=== PATIENT | male | born 1980 | race African-American/Black ===

== ENCOUNTER 2019-07-24 11:21 | Inpatient (IN) | payer OTHER ==
[2019-07-24 12:36] VITALS: BMI 20.3
--- NOTE | 2019-07-24 13:12 | HP ---
CIWA Score Nausea/Vomitin Muscle Tremors: None Anxiety: 2 Agitation: 2 Paroxysmal Sweats: 2 Orientation: 0-Oriented Tacttile Disturbances: 0-None Auditory Disturbances: 0-None Visual Disturbances: 2-Mild Sensitivity Headache: 2-Mild CIWA-Ar Total Score: 12 - Admission Criteria OASAS Guidelines: Admission for Medically Managed Detox: Requires at least one of the followin. CIWA greater than 12 2. Seizures within the past 24 hours 3. Delirium tremens within the past 24 hours 4. Hallucinations within the past 24 hours 5. Acute intervention needed for co occurring medical disorder 6. Acute intervention needed for co occurring psychiatric disorder 7. Severe withdrawal that cannot be handled at a lower level of care (continued vomiting, continued diarrhea, abnormal vital signs) requiring intravenous medication and/or fluids 8. Admission ROS [facility] Allergies/Adverse Reactions: Allergies Allergy/AdvReac Type Severity Reaction Status Date / Time tomato Allergy Intermediate Swelling Verified 07/24/19 12:26 No Known Drug Allergies Allergy Verified 07/24/19 13:46 History of Present Illness: This report was requested by: Sandy Campo | Reference #: [id number] Others' Prescriptions Patient Name: Alexander Sauceda Date: 1980 Address: [address] [place] [address] Sex: Male Rx Written Rx Dispensed Drug Quantity Days Supply Prescriber Name 01/08/2019 01/08/2019 tramadol hcl 50 mg tablet 42 7 Rea Morris ([employer]) 39 y.o. male requesting detox from etoh use cocaine : 1 oz/day via inhalation since age 17 , latest use 3 days ago cannabis : "same as cocaine" tobacco : 1 ppd etoh : 3 pints vodka /day x 5 years , latest use yesterday and this morning , denies seizures or blackouts, denies tremors . PMHX : HIV on HAART latest taken Saturday , left shoulder and right knee chronic pain ( basketball injury ) pshx : skin disorder in childhood , jaw frx 2014 psych : depression , bipolar d/o not on meds . Exam Limitations: No Limitations - Review of Systems Constitutional: No Symptoms Reported EENT: reports: No Symptoms Reported Respiratory: reports: No Symptoms reported Cardiac: reports: No Symptoms Reported GI: reports: Nausea : reports: No Symptoms Reported Musculoskeletal: reports: Joint Pain (chronic right knee , left shoulder states had MRI @ [facility] Apr 2019 , did not go back for results. States he was jumping and landed on his right knee.) Integumentary: reports: No Symptoms Reported Neuro: reports: Headache Endocrine: reports: No Symptoms Reported Psychiatric: reports: Orientated x3, Agitated, Anxious Patient History - Smoking Cessation Smoking history: Current every day smoker Have you smoked in the past 12 months: Yes Hx Chewing Tobacco Use: No Initiated information on smoking cessation: Yes 'Breaking Loose' booklet given: 07/24/19 - Substances abused Alcohol Substance route: Oral Frequency: Daily Amount used: vodka- 3pts Age of first use: 17 Date of last use: 07/24/19 Benzodiazepine (Klonopin) Substance route: Oral Frequency: Daily Amount used: 3mg Age of first use: 22 Date of last use: 07/24/19 Crack Substance route: Smoking Frequency: Daily Amount used: $20 Age of first use: 17 Date of last use: 07/21/19 K2/Spice Substance route: Smoking Frequency: Daily Amount used: 15 blunts Age of first use: 37 Date of last use: 07/24/19 Admission Physical Exam S - Vital Signs Vital Signs: Vital Signs - 24 hr 07/24/19 12:28 Temperature 98.6 F Pulse Rate 93 H Respiratory 19 Rate Blood Pressure 151/103 H - Physical General Appearance: Yes: Mild Distress, Anxious HEENTM: Yes: EOMI, Normocephalic, Normal Voice, Muffled/Hoarse Voice Respiratory: Yes: Chest Non-Tender, Lungs Clear, Normal Breath Sounds, No Respiratory Distress, No Accessory Muscle Use Neck: Yes: No masses,lesions,Nodules, Trachea in good position Cardiology: Yes: Regular Rhythm, Regular Rate, S1, S2, Tachycardia Abdominal: Yes: Normal Bowel Sounds, Non Tender, Soft Musculoskeletal: Yes: full range of Motion, Gait Steady Extremities: Yes: Non-Tender Neurological: Yes: Fully Oriented, Alert, Motor Strength 5/5, Normal Mood/Affect Integumentary: Yes: Warm - Diagnostic (1) Alcohol use disorder Current Visit: Yes Status: Chronic (2) Cocaine use Current Visit: Yes Status: Chronic (3) Cannabis use disorder, mild, abuse Current Visit: Yes Status: Chronic (4) Inhalant abuse Current Visit: Yes Status: Chronic (5) Nicotine dependence Current Visit: Yes Status: Chronic Qualifiers: Nicotine product type: cigarettes Breathalyzer - Breathalyzer Breathalyzer: 0 Urine Drug Screen - Test Device Lot number: [id number] Expiration date: 05/18/21 - Control Is test valid?: Yes - Results Drug screen NEGATIVE: No Urine drug screen results: THC-Marijuana, ADRI-Cocaine Inpatient Rehab Admission - Rehab Decision to Admit Inpatient rehab admission?: No
[2019-07-24] MEDS ORDERED: IBUPROFEN 400 MG TABLET (FP) PO PRN (13:25)
[2019-07-24] MEDS ORDERED: ACETAMINOPHEN 325 MG TABLET (FP) PO PRN ×2 (13:25)
[2019-07-24] MEDS ORDERED: hydrOXYzine PAMOATE 25 MG CAPSULE (FP) PO PRN (13:25)
[2019-07-24] MEDS ORDERED: MAG HYDROX/AL HYDROX/SIMETH 30 ML UNIT-DOSE CUP PO PRN (13:25)
[2019-07-24] MEDS ORDERED: MELATONIN 5 MG TABLETS PO PRN (13:25)
[2019-07-24] MEDS ORDERED: MAGNESIUM HYDROX 2400MG/30ML ORAL SUSPENSION 30 ML CUP PO PRN (13:25)
[2019-07-24] MEDS ORDERED: MAGNESIUM CITRATE 300 ML BOTTLE PO PRN (13:25)
[2019-07-24] MEDS ORDERED: MENTHOL/PHENOL 1 EACH UD MM PRN (13:25)
[2019-07-24] MEDS ORDERED: BISMUTH SUBSALICYLATE 524 MG/30 ML UD PO PRN (13:25)
[2019-07-24] MEDS ORDERED: diazePAM 5 MG TABLET PO PRN (13:28)
[2019-07-24] MEDS: diazePAM 5 MG TABLET PO SCH ×2 (14:25→22:22)
[2019-07-24] MEDS: ABACAVIR/DOLUTEGRAVIR/LAMIVUDI (TRIUMEQ) TABLET -NF PO SCH (16:03)
[2019-07-24] MEDS: THIAMINE HCL 100 MG TABLET (FP) PO SCH (22:22)
[2019-07-25] MEDS: diazePAM 5 MG TABLET PO SCH ×3 (06:10→21:42)
[2019-07-25] MEDS ORDERED: PRENATAL VITAMINS W/ FOLIC ACID TABLET (FP) PO SCH (10:00)
[2019-07-25] MEDS: ABACAVIR/DOLUTEGRAVIR/LAMIVUDI (TRIUMEQ) TABLET -NF PO SCH (10:14)
[2019-07-25 10:41] LABS: HEMATOCRIT 46.4 % (35.4-49); HEMOGLOBIN 15.5 GM/dL (11.7-16.9); MCH 32.3 pg (25.7-33.7); MCHC 33.4 g/dl (32.0-35.9); MEAN CELL VOLUME 96.8 fl (80-96); MEAN PLT VOLUME 9.9 fl (7.5-11.1); PLATELET COUNT 172 K/MM3 (134-434); RDW 13.6 % (11.9-15.9); WHITE BLOOD COUNT 4.7 K/mm3 (4.0-10.0)
[2019-07-25 10:43] LABS: ALBUMIN 4.2 g/dl (3.4-5.0); BILIRUBIN,TOTAL 0.8 mg/dL (0.2-1); BLOOD UREA NITROGEN 22.4 mg/dL (7-18); CALCIUM 9.2 mg/dL (8.5-10.1); CREATININE 1.3 mg/dL (0.55-1.3); POTASSIUM 3.9 mmol/L (3.5-5.1); TOT PROT 7.8 g/dl (6.4-8.2)
--- NOTE | 2019-07-25 12:13 | CONSULT ---
[facility] Psychiatric Consult - Data Date of interview: 07/25/19 Admission source: [facility] Identifying data: First visit at [facility] and admission to [address] [place] [address] for this 39 y/o AA male self-referred for detoxification treatment. EMMA issues : cocaine, alcohol, cannabis/K2, nicotine, benzodiazepine (xanax). Patient is single, no dependents, domiciled ([place] setting), unemployed and supported on [employer] funds. Substance Abuse History: Discussed with patient in this session. Details in current [facility] report as follows : Smoking history: Current every day smoker. Have you smoked in the past 12 months: Yes. Hx Chewing Tobacco Use: No. Initiated information on smoking cessation: Yes. 'Breaking Loose' booklet given : 07/24/19. - Substances abused. Alcohol. Substance route: Oral. Frequency: Daily. Amount used: vodka- 3pts. Age of first use: 17. Date of last use: 07/24/19. Benzodiazepine (Klonopin). Substance route: Oral. Frequency: Daily. Amount used: 3mg. Age of first use: 22. Date of last use: 07/24/19. Crack. Substance route: Smoking. Frequency: Daily. Amount used : $20. Age of first use: 17. Date of last use: 07/21/19. K2/Spice. Substance route: Smoking. Frequency: Daily. Amount used: 15 blunts. Age of first use: 37. Date of last use: 07/24/19 Medical History: Medical profile is remarkable for HIV infection since 2012 (on HAART medications), chronic pain syndrome (left shoulder + right knee) and antecedent of fracture of mandible (2014). Psychiatric History: Patient denies history of psychiatric hospitalizations. He states, however, that he sees a psychiatrist (Dr Kevin Miller) on a monthly basis, at the [facility] in [facility], for medication management ( prescribed seroquel 200 mg/hs). Diagnosed with schizoaffective disorder (as per self-report). Mr Sauceda denies history of suicide attempts. Physical/Sexual Abuse/Trauma History: Patient denies history of abuse. Additional Comment: Urine drug screen results: THC-Marijuana, ADRI-Cocaine. Noted. Mental Status Exam - Mental Status Exam Alert and Oriented to: Time, Place, Person Cognitive Function: Good Patient Appearance: Well Groomed Mood: Hopeful, Euthymic Affect: Appropriate, Normal Range Patient Behavior: Appropriate, Cooperative Speech Pattern: Clear, Appropriate Voice Loudness: Normal Thought Process: Intact, Goal Oriented Thought Disorder: Not Present Hallucinations: Denies Suicidal Ideation: Denies Insight/Judgement: Poor Sleep: Poorly, Difficulty falling asleep Appetite: Good Gait/Station: Normal Psychiatric Findings - Problem List ([place] 1, 2,3) (1) Alcohol use disorder Current Visit: Yes Status: Chronic (2) Cannabis use disorder, mild, abuse Current Visit: Yes Status: Chronic (3) Cocaine use Current Visit: Yes Status: Chronic (4) Nicotine dependence Current Visit: Yes Status: Chronic Qualifiers: Nicotine product type: cigarettes (5) History of schizoaffective disorder Current Visit: Yes Status: Chronic Comment: As per self-report. (6) Insomnia Current Visit: Yes Status: Chronic - Initial Treatment Plan Initial Treatment Plan: Psychoeducation. Sleep hygiene. Detoxification. AA meetings. MAT services explained to patient. Seroquel 200 mg po hs. Resumed at patient's request. Side effects/benefits discussed in this session. Mr Sauceda is in agreement with this plan of care. Verbal consent granted to MD. Serrano.
--- NOTE | 2019-07-25 12:35 | PN ---
S CIWA - CIWA Score Nausea/Vomitin-No Nausea/No Vomiting Muscle Tremors: None Anxiety: 2 Agitation: 0-Normal Activity Paroxysmal Sweats: 3 Orientation: 0-Oriented Tacttile Disturbances: 0-None Auditory Disturbances: 0-None Visual Disturbances: 0-None Headache: 2-Mild CIWA-Ar Total Score: 7 [facility] Progress Note (SOAP) Subjective: c/o anxiety, headache, and sweats. Objective: 07/25/19 12:33 Vital Signs 07/25/19 07/25/19 06:50 09:13 Temperature 97 F L 97.1 F L Pulse Rate 62 61 Respiratory 18 18 Rate Blood Pressure 127/85 150/99 Laboratory Last Values WBC 4.7 K/mm3 (4.0-10.0) 07/25/19 07:30 RBC 4.80 M/mm3 (4.00-5.60) 07/25/19 07:30 Hgb 15.5 GM/dL (11.7-16.9) 07/25/19 07:30 Hct 46.4 % (35.4-49) 07/25/19 07:30 MCV 96.8 fl (80-96) H 07/25/19 07:30 MCH 32.3 pg (25.7-33.7) 07/25/19 07:30 MCHC 33.4 g/dl (32.0-35.9) 07/25/19 07:30 RDW 13.6 % (11.9-15.9) 07/25/19 07:30 Plt Count 172 K/MM3 (134-434) 07/25/19 07:30 MPV 9.9 fl (7.5-11.1) 07/25/19 07:30 Sodium 139 mmol/L (136-145) 07/25/19 07:30 Potassium 3.9 mmol/L (3.5-5.1) 07/25/19 07:30 Chloride 105 mmol/L (98-107) 07/25/19 07:30 Carbon Dioxide 28 mmol/L (21-32) 07/25/19 07:30 Anion Gap 5 MMOL/L (8-16) L 07/25/19 07:30 BUN 22.4 mg/dL (7-18) H 07/25/19 07:30 Creatinine 1.3 mg/dL (0.55-1.3) 07/25/19 07:30 Est GFR (CKD-EPI)AfAm 79.10 07/25/19 07:30 Est GFR (CKD-EPI)NonAf 68.25 07/25/19 07:30 Random Glucose 92 mg/dL (74-106) 07/25/19 07:30 Calcium 9.2 mg/dL (8.5-10.1) 07/25/19 07:30 Total Bilirubin 0.8 mg/dL (0.2-1) 07/25/19 07:30 AST 30 U/L (15-37) 07/25/19 07:30 ALT 38 U/L (13-61) 07/25/19 07:30 Alkaline Phosphatase 71 U/L (45-117) 07/25/19 07:30 Total Protein 7.8 g/dl (6.4-8.2) 07/25/19 07:30 Albumin 4.2 g/dl (3.4-5.0) 07/25/19 07:30 RPR Titer Nonreactive (NONREACTIVE) 07/25/19 07:30 Labs noted. Assessment: 07/25/19 12:34 AOX3, in no acute respiratory distress. Full ROM, ambulating in the unit. Withdrawal symptoms. For d/c tomorrow. Plan: continue detox. D/C in AM.
[2019-07-25] MEDS: THIAMINE HCL 100 MG TABLET (FP) PO SCH (21:42)
[2019-07-25] MEDS ORDERED: QUEtiapine FUMARATE 200 MG TABLET PO SCH (22:00)
[2019-07-26] MEDS ORDERED: diazePAM 5 MG TABLET PO ONE (06:00)
[2019-07-26] MEDS: ABACAVIR/DOLUTEGRAVIR/LAMIVUDI (TRIUMEQ) TABLET -NF PO SCH (09:31)
[2019-07-26 11:02] VITALS: BP 144/99; PULSE 69; TEMP 97.4
--- NOTE | 2019-07-26 11:17 | DS ---
[facility] Detox Discharge Summary Admission Date: 07/24/19 Discharge Date: 07/26/19 - History Present History: Alcohol Dependence, Sedative Dependence Additional Comments: 39 years old male admitted on 07/24/19 for alcohol and benzo withdrawal sx management treated with valium detox regiment patient has completed valium regimen and tolerated well alert oriented x 3 respiratory clear lungs bilaterally on auscultation abdomen soft no rebound tenderness skin warm and dry - Physical Exam Results Vital Signs: Vital Signs Temperature 97.4 F L 07/26/19 08:50 Pulse Rate 69 07/26/19 08:50 Respiratory Rate 16 07/26/19 08:50 Blood Pressure 144/99 07/26/19 08:50 O2 Sat by Pulse Oximetry (%) Pertinent Admission Physical Exam Findings: alcohol and benzo withdrawal Laboratory Last Values WBC 4.7 K/mm3 (4.0-10.0) 07/25/19 07:30 RBC 4.80 M/mm3 (4.00-5.60) 07/25/19 07:30 Hgb 15.5 GM/dL (11.7-16.9) 07/25/19 07:30 Hct 46.4 % (35.4-49) 07/25/19 07:30 MCV 96.8 fl (80-96) H 07/25/19 07:30 MCH 32.3 pg (25.7-33.7) 07/25/19 07:30 MCHC 33.4 g/dl (32.0-35.9) 07/25/19 07:30 RDW 13.6 % (11.9-15.9) 07/25/19 07:30 Plt Count 172 K/MM3 (134-434) 07/25/19 07:30 MPV 9.9 fl (7.5-11.1) 07/25/19 07:30 Sodium 139 mmol/L (136-145) 07/25/19 07:30 Potassium 3.9 mmol/L (3.5-5.1) 07/25/19 07:30 Chloride 105 mmol/L (98-107) 07/25/19 07:30 Carbon Dioxide 28 mmol/L (21-32) 07/25/19 07:30 Anion Gap 5 MMOL/L (8-16) L 07/25/19 07:30 BUN 22.4 mg/dL (7-18) H 07/25/19 07:30 Creatinine 1.3 mg/dL (0.55-1.3) 07/25/19 07:30 Est GFR (CKD-EPI)AfAm 79.10 07/25/19 07:30 Est GFR (CKD-EPI)NonAf 68.25 07/25/19 07:30 Random Glucose 92 mg/dL (74-106) 07/25/19 07:30 Calcium 9.2 mg/dL (8.5-10.1) 07/25/19 07:30 Total Bilirubin 0.8 mg/dL (0.2-1) 07/25/19 07:30 AST 30 U/L (15-37) 07/25/19 07:30 ALT 38 U/L (13-61) 07/25/19 07:30 Alkaline Phosphatase 71 U/L (45-117) 07/25/19 07:30 Total Protein 7.8 g/dl (6.4-8.2) 07/25/19 07:30 Albumin 4.2 g/dl (3.4-5.0) 07/25/19 07:30 RPR Titer Nonreactive (NONREACTIVE) 07/25/19 07:30 lab noted - Treatment Hospital Course: Detox Protocol Followed, Detoxed Safely, Responded well, Discharged Condition Good, Rehab Referral Accepted Patient has Accept[facility] - Medication Discharge Medications: Ambulatory Orders Abacavir/Dolutegravir/Lamivudi [Triumeq (Non-Formulary)] 1 each PO DAILY Quetiapine Fumarate [Seroquel -] 200 mg PO HS 07/24/19 - Diagnosis (1) HIV (human immunodeficiency virus infection) Status: Chronic Qualifiers: HIV symptom status: asymptomatic Qualified Code(s): Z21 - Asymptomatic human immunodeficiency virus [HIV] infection status (2) Sedative, hypnotic or anxiolytic abuse, uncomplicated Status: Acute (3) Alcohol use disorder Status: Acute (4) Nicotine dependence Status: Acute Qualifiers: Nicotine product type: cigarettes Substance use status: in withdrawal Qualified Code(s): F17.213 - Nicotine dependence, cigarettes, with withdrawal - AMA Did Patient Leave Against Medical Advice: No CIWA Score - CIWA Score Nausea/Vomitin-No Nausea/No Vomiting Muscle Tremors: None Anxiety: 1-Mildly Anxious Agitation: 0-Normal Activity Paroxysmal Sweats: 2 Orientation: 0-Oriented Tacttile Disturbances: 0-None Auditory Disturbances: 0-None Visual Disturbances: 0-None Headache: 2-Mild CIWA-Ar Total Score: 5
== END 2019-07-26 11:39 | disposition home or self-care (01) | DRG 774 ==
LOC: YASAS 11:21 → Y3N 13:51
PROVIDERS: ADMIT Allergy & Immunology; ATTEND Allergy & Immunology
PROC: HZ2ZZZZ Detoxification Services for Substance Abuse Treatment (ICD-10-PCS; principal; 2019-07-24)
DX: F10.230 Alcohol dependence with withdrawal, uncomplicated (principal); F13.230 Sedative, hypnotic or anxiolytic dependence with withdrawal, uncomplicated; F14.20 Cocaine dependence, uncomplicated; F12.20 Cannabis dependence, uncomplicated; F18.10 Inhalant abuse, uncomplicated; F17.210 Nicotine dependence, cigarettes, uncomplicated; F25.9 Schizoaffective disorder, unspecified; Z21 Asymptomatic human immunodeficiency virus [HIV] infection status; G47.00 Insomnia, unspecified; Z88.8 Allergy status to other drugs, medicaments and biological substances
CPT/HCPCS: 36415; 80053; 85027; 86593